=== PATIENT | male | born 1950 | race Hispanic/Latino ===

== ENCOUNTER 2018-09-15 14:20 | Inpatient (IN) | payer OTHER, MEDICARE | END 2018-09-24 17:08 | LOC: EDH 14:20 → EDHIP 18:25 → 3DH 20:09 | DX: A41.50 Gram-negative sepsis, unspecified (principal); K68.12 Psoas muscle abscess; E44.1 Mild protein-calorie malnutrition; N39.0 Urinary tract infection, site not specified; A02.1 Salmonella sepsis; E11.65 Type 2 diabetes mellitus with hyperglycemia; R63.4 Abnormal weight loss ==

== ENCOUNTER 2018-10-11 10:25 | Inpatient (IN) | payer OTHER, MEDICARE ==
[~2018-10-11] VITALS: Ht 162.6 cm; Wt 59.6 kg
[2018-10-11] VITALS (15 sets, daily range): BP systolic 144–174; BP diastolic 72–89
[2018-10-11 10:58] LABS: APPEARANCE,URINE Clear (CLEAR); BILIRUBIN,URINE Negative (NEGATIVE); COLOR,URINE Yellow (YELLOW); GLUCOSE, URINE (UA) 500 mg/dL (NEGATIVE); KETONES,URINE Negative (NEGATIVE); LEUKOCYTE ESTERASE ,URINE Negative (NEGATIVE); NITRATE,URINE Negative (NEGATIVE); OCCULT BLOOD,URINE Negative (NEGATIVE); PROTEIN,URINE Negative (NEGATIVE)
[2018-10-11 11:21] LABS: BACTERIA,URINE Rare /HPF (None Seen); RBC,URINE 0-1 /HPF (0-1); SQUAMOUS EPITHELIAL CELL,UR Rare /HPF (0-2); WBC,URINE 0-1 /HPF (0-1)
[2018-10-11 11:25] LABS: CREATININE 1.1 mg/dL (0.5-1.5); POTASSIUM 4.3 mmol/L (3.5-5.1)
[2018-10-11 11:28] LABS: BASOPHILS % (AUTO) 0.6 % (0.0-5.0); EOSINOPHILS % (AUTO) 1.4 % (0.0-8.0); HEMATOCRIT 31.9 % (42-54); LYMPHOCYTES % (AUTO) 11.1 % (21.0-51.0); MEAN CORPUSCULAR HEMOGLOBIN 28.3 pg (27.0-33.0); MEAN CORPUSCULAR HGB CONC 32.7 g/dL (32.0-36.0); MEAN CORPUSCULAR VOLUME 86.6 fL (79-99); MONOCYTES % (AUTO) 5.2 % (3.0-13.0); NEUTROPHILS % (AUTO) 81.7 % (40.0-77.0); PLATELET COUNT (AUTO) 403 K/uL (130-400); RED BLOOD CELL COUNT(AUTO) 3.69 MIL/uL (4.50-6.20); RED CELL DISTRIBUTION WIDTH 16.4 % (11.0-15.5); WHITE BLOOD COUNT (AUTO) 11.4 K/uL (4.8-10.8)
[2018-10-11 11:30] LABS: ALBUMIN 2.4 g/dL (3.5-5.0); BILIRUBIN,TOTAL 0.5 mg/dL (0.2-1.0); TOTAL PROTEIN, SERUM 9.3 g/dL (6.0-8.3)
[2018-10-11] MEDS ORDERED: IOHEXOL-350 75 ML VIAL IV ONE (11:43)
[2018-10-11] MEDS ORDERED: CEFAZOLIN SODIUM 1 GM VIAL IVP PRN (13:00)
[2018-10-11 13:02] LABS: INR 1.02 (0.85-1.15); PARTIAL THROMBOPLASTIN TIME 37.6 SEC (26.3-35.5); PROTHROMBIN TIME 10.7 SEC (9.6-11.6)
[2018-10-11 13:19] LABS: CHOLESTEROL 131 mg/dL (<200); HDL CHOLESTEROL 94 mg/dL (29-71); LDL DIRECT 74 mg/dL (0-99); TRIGLYCERIDES 116 mg/dL (30-200)
[2018-10-11 13:21] LABS: HEMOGLOBIN A1C 8.3 % (4.0-6.0)
[2018-10-11] MEDS ORDERED: LACTATED RINGERS 1000ML 1,000 ML IV ONE (13:21)
[2018-10-11] MEDS ORDERED: PROTAMINE SULFATE 10 MG/ML 25ML VIAL IV ONE (13:52)
[2018-10-11] MEDS ORDERED: PROPOFOL 10 MG/ML 20ML VIAL IV ONE (13:52)
[2018-10-11] MEDS ORDERED: AMINOCAPROIC ACID 250 MG/ML 20 ML VIAL IV ONE (13:52)
[2018-10-11] MEDS ORDERED: HEPARIN SODIUM 1000UNIT/ML 10ML VIAL ONE (13:52)
[2018-10-11] MEDS ORDERED: EPINEPHRINE 1 MG/ML AMPULE ONE (13:52)
[2018-10-11] MEDS ORDERED: SODIUM BICARB 50MEQ 50ML VIAL ONE ×2 (13:52→14:02)
[2018-10-11] MEDS ORDERED: NOREPINEPHRINE BITARTRATE 1 MG/1 ML ML IV ONE (13:52)
[2018-10-11] MEDS ORDERED: LIDOCAINE PF 2% 5ML ABBOJECT ONE (13:52)
[2018-10-11] MEDS ORDERED: ESMOLOL HCL 10 MG/ML 10 ML VIAL ONE (13:52)
[2018-10-11] MEDS ORDERED: GLYCOPYRROLATE 1 MG/5 ML SYRINGE ONE (13:53)
[2018-10-11] MEDS ORDERED: FENTANYL CITRATE PF 50 MCG/1 ML 20ML VIAL IJ ONE (13:53)
[2018-10-11] MEDS ORDERED: ROCURONIUM 10MG/1ML SYR 10 MG/ML ML ONE (13:53)
[2018-10-11] MEDS ORDERED: MIDAZOLAM HCL 1 MG/ML 5ML VIAL ONE (13:53)
[2018-10-11] MEDS ORDERED: VASOPRESSIN 20 UNITS/ML 1ML VIAL ONE (13:54)
[2018-10-11] MEDS ORDERED: CEFAZOLIN SODIUM 1 GM VIAL ONE (14:10)
[2018-10-11] MEDS ORDERED: LABETALOL 20 MG/4 ML DISP.SYRIN IV ONE (14:19)
[2018-10-11] MEDS ORDERED: PHARMACY COMMUNICATION MISC SCH (16:30)
[2018-10-11] MEDS ORDERED: VANCOMYCIN PROTOCOL PER PHARMACY IV SCH (16:30)
[2018-10-11] MEDS ORDERED: VANCOMYCIN 1GM+NS 250ML 250 ML IV SCH (16:30)
[2018-10-11] MEDS ORDERED: ZOSYN 3.375GM+NS 50ML 50 ML IV ONE (18:37)
--- NOTE | 2018-10-11 19:51 | NUR ---
TRANSFER REQUEST ON ENTRY PATIENT SON REQUEST TRANSFER TO ANOTHER HOSPITAL. STATED THAT HAS AN ACCEPTING PHYSICIAN AT [facility]. NOTIFIED PATIENT SON THAT WOULD NEED TO ALSO ARRANGE TRANSPORT AND WOULD INCUR ALL COST RELATED TO TRANSPORT. SON ACKNOWLEDGED INFORMATION AND STATED THAT WOULD BE FINE. NOTIFIED BLISTER RUST ERADICATOR OF PATIENT/SON REQUEST.
[2018-10-11] MEDS: VANCOMYCIN 1GM+NS 250ML 250 ML IV SCH (20:05)
--- NOTE | 2018-10-11 21:06 | NUR ---
STATUS SPOKE WITH DR ARANA REGARDING PATIENT. DR ARANA STATED THAT HAS SPOKEN WITH FAMILY AND PATIENT NEEDS TO FIND ANOTHER SURGEON/PLACE FOR SURGERY. DR ARANA STATED HE IS NO LONGER SEEING THIS PATIENT.
--- NOTE | 2018-10-11 21:19 | NUR ---
STATUS MARKETING LIAISON CALLED BERTIN MURGUIAO AND NOTIFIED OF CURRENT SITUATION. INFORMED THAT WE WOULD ACCOMMODATE FAMILY AND ONCE AN ACCEPTING FACILITY IS FOUND PATIENT/FAMILY WOULD BE RESPONSIBLE FOR TRANSPORT ARRANGEMENT AND COST
--- NOTE | 2018-10-11 21:24 | NUR ---
STATUS SPOKE WITH SON ZAKIA PEREZ. REVISITED SUBJECT OF DOING SURGERY WITH THE USE OF BLOOD AND BLOOD PRODUCTS. ZAKIA PEREZ SON STATED THAT, NO, FATHER WILL NOT HAVE SURGERY WITH THE USE OF BLOOD AND BLOOD PRODUCTS. ASKED ZAKIA BARRERA, PATIENT. PATIENT ALSO STATED THAT WOULD NOT HAVE SURGERY WITH THE USE OF BLOOD AND BLOOD PRODUCTS
--- NOTE | 2018-10-11 21:58 | NUR ---
PAIN/BLOOD PRESSURE PATIENT COMPLAINT OF PAIN. BLOOD PRESSURE ALSO ELEVATED 160'S-170'S. 2132 MEDIA DEVELOPER FOR BENCHMARK PAGED. 2155 RETURN PAGED FROM JAS LOPEZ. ORDERS RECEIVED FOR PAIN MEDICATION, ANTIEMETIC, AND BLOOD PRESSURE MEDICATION. ORDERS ENTERED INTO SYSTEM. Addendum: 10/12/18 at 0137 by ALESHA ANN RN RN UPDATED ON PATIENT SITUATION AND TRANSFER REQUEST
[2018-10-11] MEDS ORDERED: HYDRALAZINE HCL 20 MG/ML VIAL IV PRN (22:00)
[2018-10-11] MEDS ORDERED: MORPHINE SULFATE 4 MG/1ML SYG IV PRN (22:00)
[2018-10-11] MEDS ORDERED: ONDANSETRON HCL 4 MG/2 ML VIAL IVP PRN (22:00)
[2018-10-11] MEDS ORDERED: HYDROCODONE/ACETAMINOPHEN 7.5/325 MG TAB PO PRN (22:00)
[2018-10-11] MEDS ORDERED: ONDANSETRON HCL 4 MG/2 ML VIAL ONE (22:04)
[2018-10-11] MEDS ORDERED: MORPHINE SULFATE 4 MG/1ML SYG ONE (22:05)
--- NOTE | 2018-10-11 23:09 | NUR ---
STATUS 2240 TRANSPORTATION PROJECT MANAGER CALLED [facility]. DR ARANA SKATE MAKER FOR [facility]. 2245 DHR CALLED BY TRANSPORTATION PROJECT MANAGER. IS AT [facility] FOR ICU. 2250 [facility] DOES NOT HAVE A CARDIOVASCULAR SURGEON SKATE MAKER THAT DOES ANEURYSM REPAIR. 2255 [facility] WAS CALLED BY TRANSPORTATION PROJECT MANAGER AND WILL LOOK FOR [facility] HAS THE SERVICE NEEDED THEN [facility].
--- NOTE | 2018-10-11 23:30 | NUR ---
STATUS DR TEJADA NOTIFIED REGARDING DR ARANA AND TRANSFER REQUEST. STATED TO NOTIFY QUILL BUNCHER AND SORTER
[2018-10-12] VITALS (28 sets, daily range): BP systolic 123–176; BP diastolic 62–88
--- NOTE | 2018-10-12 01:00 | NUR ---
STATUS 2356 PER INFORMATION SERVICES ASSISTANT PATIENT DECLINED AT [facility]. 0036 PER INFORMATION SERVICES ASSISTANT PATIENT DECLINED, OUT OF SCOPE OF PRACTICE. Addendum: 10/12/18 at 0323 by ALESHA ANN RN RN [facility], CHARLEEN CARDIOVASCULAR SURGEON
[2018-10-12] MEDS: ZOSYN 3.375GM+NS 50ML 50 ML IV SCH ×3 (01:47→18:23)
[2018-10-12] MEDS ORDERED: PANT40TA25 PO (03:34)
[2018-10-12] MEDS ORDERED: FURO20TA4 PO (03:34)
[2018-10-12] MEDS ORDERED: METO25TA6 PO (03:34)
[2018-10-12] MEDS ORDERED: LINA5TAB PO (03:34)
[2018-10-12] MEDS ORDERED: ASPI-555 PO (03:34)
--- NOTE | 2018-10-12 03:50 | NUR ---
STATUS 0338 CALLED SON ZAKIA PEREZ. UPDATED. NOTIFIED THAT CLOTHES MARKER IS NOW WORKING ON LOOKING OUT OF THE AREA. 0345 [facility] CALLED IN [place] BY CLOTHES MARKER. NO BEDS AVAILABLE, AT CAPACITY.
[2018-10-12] MEDS: VANCOMYCIN 1GM+NS 250ML 250 ML IV SCH (08:46)
--- NOTE | 2018-10-12 10:10 | NUR ---
0940 call received from son Loi Montez regarding information regarding an accepting physician by the Name Messi Stuart instructed I will follow up . 0945 met with pt and spouse regarding transfer pt and spouse does not want to talk states speak with my sons verbal consent to speak to sons . call place to son loi which states yes initiate transfer but nelson larson has power of estate attorney, paper work in chart. [address] to transfer center [phone] information provided spoke with nery which will call back. 1015 nelson Larson here inform him of call received from loi and inform him of initiation of transfer and now awaiting for call back, verbalized understanding . Danilo baltazar
[2018-10-12] MEDS ORDERED: METRONIDAZOLE 500 MG TABLET PO SCH (11:30)
[2018-10-12] MEDS ORDERED: ACETAMINOPHEN 325 MG TAB PO PRN (11:30)
--- NOTE | 2018-10-12 11:30 | NUR ---
DR. TEJADA HERE AND ADVISED OF THE FAMILY'S REQUEST TO TRANSFER PT TO ANOTHER FACILITY AND THE FAMILY WAS UPDATED PER WIRE WRAPPING MACHINE OPERATOR. PLAN OF CARE AND ORDERS NOTED.
[2018-10-12] MEDS: HYDROCODONE/ACETAMINOPHEN 10/325 MG TAB PO PRN ×2 (11:34→18:23)
--- NOTE | 2018-10-12 13:15 | NUR ---
PT HAS BEEN ACCEPTED PER DR. GARG AND WILL BE TRANSFERRED TO [facility]. FAMILY HAS BEEN ADVISED BY OFFICE COMMUNICATION PROFESSOR BEATA PHAM RN.
--- NOTE | 2018-10-12 16:10 | NUR ---
PAMELA PLAN PATIENT BEING TRANSFERRED TO HIGHER LEVEL OF CARE FOR EMERGENCY SURGERY. NO NEEDS VERBALIZED AT THIS TIME BY NURSING STAFF. Addendum: 10/12/18 at 1611 by CHARLOTTE GRAHAM RN CM Amended: Links added.
--- NOTE | 2018-10-12 17:00 | NUR ---
PT REPORT WAS CALLED TO MAXIMILIANO AT [facility] AND NOTIFIED STAFF THAT THE AMBULANCE HAD BEEN CALLED. MAXIMILIANO ADVISED [facility] STAFF TO PLEASE ADVICE FAMILY OF THEIR STRICT VISITING HOURS AT [facility]. FAMILY WERE ADVISED AND DID ACKNOWLEDGE UNDERSTANDING.
--- NOTE | 2018-10-12 17:12 | NUR ---
EMS WAS CALLED AND STATED THAT THEY WERE GETTING A CREW TOGETHER AND WHEN THEY WERE ABLE TO DO THAT THEY WOULD COME AND PICK PATIENT UP.
--- NOTE | 2018-10-12 17:45 | NUR ---
1035 Dr Neely here on rounds made aware of initiation of transfer to [facility] no orders received. 1304 call back from transfer center Karen with bed assignment and acceptance from Dr Stuart room cvicu 2674 and primary nurse to call report to [phone]. [address] nelson Bella inform off acceptance he agreed to inform his brother José Luis. Shayne was also notified of payment for EMS verbalized understanding. 1359 consent for transfer sign by pt, son Jeff present and phone call made to brother Shayne. 1440 EMS set up phone number of nelson Bella provided for payment arrangements. 1520 call received from nelson Bella stating that they did not refused at it was the surgeon that walk away and would not due the surgery with out the blood transfusion and thats why he had to look for another facility and another surgeon to him that abandonment from the surgeon. he also states he did not have the money for the ambulance. 1530 met with pt inform him of son awareness for payment but no money. inform him will follow up with administration verbalizes understanding . 1543 Met with manager case management for assistance regarding EMS and Insurance authorization . 1607 spoke with pt inform him manager case management working on the insurance verbalized understanding. CM reached out to Dr Waldron and as per Dr Waldron this is an emergency higher of level of care transfer. 1625 CM in pt room. 1627 EMS contacted by CM. 1640 pt inform primary nurse will call report and now awaiting for EMS verbalized understanding . Danilo baltazar
--- NOTE | 2018-10-12 19:47 | NUR ---
TRANSFER EMS ARRIVED. BRIEF REPORT GIVEN TO EMS. PATIENT TRANSFERRED FROM BED TO STRETCHER WITH ASSISTANCE X3. PATIENT AAOX3 ON ROOM AIR. LEFT UNIT AT 1944
[2018-10-13] MEDS ORDERED: PANTOPRAZOLE SODIUM 40 MG TABLET.DR PO SCH (09:00)
== END 2018-10-12 19:45 | disposition short-term general hospital (02) | DRG 871 ==
LOC: EDH 10:25 → EDHIP 14:55 → 2CH 17:43
PROVIDERS: ADMIT Internal Medicine Critical Care Medicine; ATTEND Internal Medicine Critical Care Medicine
DX: A41.9 Sepsis, unspecified organism (principal); K68.12 Psoas muscle abscess; I72.9 Aneurysm of unspecified site; E11.9 Type 2 diabetes mellitus without complications; E78.5 Hyperlipidemia, unspecified; E86.0 Dehydration; G89.29 Other chronic pain; I10 Essential (primary) hypertension; M54.5 Low back pain; Z98.41 Cataract extraction status, right eye
CPT/HCPCS: 36415; 71045; 74177; 80053; 80061; 81001; 82948; 83036; 85025; 85610; 85730; 86850; 86900; 86901; 86922; 87040; 93005; 99291; G0378; J0171; J0690; J1644; J2001; J2250; J2270; J2405; J2543; J2704; J2720; J3010; J3370; J3490; J7120; Q9967

== ENCOUNTER → 2021-10-29 | Outpatient (CLI) | payer OTHER, MEDICARE ==
[~2021-10-29] MED LIST: ASPI-556 PO; FURO20TA4 PO; LINA5TAB PO; METO25TA6 PO; PANT40TA55 PO
[2021-10-29 11:52] LABS: ALBUMIN 4.1 g/dL (3.5-5.0); BILIRUBIN,TOTAL 0.9 mg/dL (0.2-1.0); CREATININE 1.1 mg/dL (0.5-1.5); TOTAL PROTEIN, SERUM 7.7 g/dL (6.0-8.3)
== END | disposition home or self-care (01) ==
LOC: LAB 09:51
PROVIDERS: ATTEND Internal Medicine
DX: I10 Essential (primary) hypertension (principal)
CPT/HCPCS: 36415; 80053

== ENCOUNTER → 2021-10-31 | Outpatient (CLI) | payer OTHER, MEDICARE ==
[~2021-10-31] MED LIST changes: +REGADENOSON 0.4 MG/5 ML PF SYG IVP SCH
== END | disposition home or self-care (01) ==
LOC: SHCH 09:09
PROVIDERS: ATTEND Internal Medicine
DX: R06.09 Other forms of dyspnea (principal)
CPT/HCPCS: 78452; 93017; 96374; A9500 ×2; J2785

== ENCOUNTER 2021-11-19 09:57 | Outpatient (CLI) | payer OTHER, MEDICARE ==
[~2021-11-19 09:57] MED LIST changes: -REGADENOSON 0.4 MG/5 ML PF SYG IVP SCH
[2021-11-19] MEDS ORDERED: IOHEXOL 350 MG/ML 100ML INFUS..BTL IV ONE (10:37)
== END 2021-11-19 11:30 | disposition home or self-care (01) ==
LOC: DAH 09:57 → RAH 09:57
PROVIDERS: ATTEND Internal Medicine
DX: I70.0 Atherosclerosis of aorta (principal); Z95.828 Presence of other vascular implants and grafts; Z95.1 Presence of aortocoronary bypass graft
CPT/HCPCS: 71275; 74174; Q9967

== ENCOUNTER → 2023-11-02 | Outpatient (CLI) | payer OTHER, MEDICARE | END | disposition home or self-care (01) | LOC: RAH 08:22 | PROVIDERS: ATTEND Family Medicine | DX: I70.0 Atherosclerosis of aorta (principal); I71.43 Infrarenal abdominal aortic aneurysm, without rupture; Z95.828 Presence of other vascular implants and grafts | CPT/HCPCS: 76700 ==

== ENCOUNTER → 2024-06-15 | Outpatient (CLI) | payer OTHER, MEDICARE ==
[2024-06-15 12:54] LABS: BILIRUBIN,TOTAL 0.6 mg/dL (0.2-1.0); POTASSIUM 4.3 mmol/L (3.5-5.1); TOTAL PROTEIN, SERUM 7.8 g/dL (6.0-8.3)
== END | disposition home or self-care (01) ==
LOC: LAB 10:39
PROVIDERS: ATTEND Student in an Organized Health Care Education/Training Program
DX: I10 Essential (primary) hypertension (principal); Z79.899 Other long term (current) drug therapy
CPT/HCPCS: 36415; 80053; 80061; 83036